=== PATIENT | male | born 1940 | race Caucasian/White ===

== ENCOUNTER 2016-11-15 06:03 | Day surgery (SDC) | payer MEDICARE ==
[~2016-11-15] VITALS: Ht 172.7 cm; Wt 100.7 kg
[~2016-11-15 06:03] MED LIST: ALTACE5 M1 PO; ASPIRIN325 MG PO; ATENOLOL50 MG PO; AVODART0.5 MG PO; FLOMAX0.4 M1 OR; HYDROCHLOROT12.5 M1 OR; LIPITOR40 MG PO; NAMZARIC 28-101 CAP PO; PRILOSEC20 MG/CAP PO; TOPIRAMATE25 MG PO; VASOTEC20 MG OR; ZOCOR10 MG OR
[2016-11-15 11:35] VITALS: BP 102/58
== END 2016-11-15 09:20 | disposition home or self-care (01) ==
LOC: ENDO 06:03
PROVIDERS: ATTEND Surgery
PROC: 0DJD8ZZ Inspection of Lower Intestinal Tract, Via Natural or Artificial Opening Endoscopic (ICD-10-PCS; principal; 2016-11-15)
DX: K59.00 Constipation, unspecified (principal); R19.7 Diarrhea, unspecified; R19.4 Change in bowel habit; K57.30 Diverticulosis of large intestine without perforation or abscess without bleeding; I10 Essential (primary) hypertension; Z95.2 Presence of prosthetic heart valve

== ENCOUNTER → 2018-10-29 | Outpatient (REF) | payer MEDICARE ==
[2018-10-29 17:49] LABS: URINE BILIRUBIN - DIPSTICK NEGATIVE (NEGATIVE); URINE BLOOD DIPSTICK NEGATIVE (NEGATIVE); URINE COLOR YELLOW; URINE GLUCOSE - DIPSTICK NEGATIVE (NEGATIVE); URINE KETONE NEGATIVE (NEGATIVE); URINE LEUK ESTERASE NEGATIVE (Negative); URINE NITRITE - DIPSTICK NEGATIVE (Negative); URINE PROTEIN - DIPSTICK NEGATIVE (NEG-TRACE)
[2018-10-29 17:51] LABS: URINE CLARITY CLEAR
== END | disposition home or self-care (01) ==
LOC: LABSPEC 16:46
PROVIDERS: ATTEND Internal Medicine
DX: R35.0 Frequency of micturition (principal)

== ENCOUNTER 2020-02-01 11:05 | Emergency (ER) | payer MEDICARE ==
[~2020-02-01] VITALS: Ht 172.7 cm; Wt 80.0 kg
[2020-02-01 11:39] LABS: HEMATOCRIT 41.8 % (39.0-50.0); HEMOGLOBIN 14.4 g/dl (14.0-18.0); IMMATURE GRANULOCYTES 0.7 % (0.0-5.0); MEAN CELL VOLUME 91.5 fL CALC (80.0-100.0); MEAN CORPUSCULAR HGB 31.5 pG CALC (26.0-32.0); MEAN CORPUSCULAR HGB CONC 34.4 g/dL CAL (32.0-36.0); NEUT# 3.73 thou/uL (1.82-7.42); RED BLOOD COUNT 4.57 mill/uL (4.70-6.10); RED CELL DISTRI WIDTH 13.2 % (11.5-15.5)
[2020-02-01 11:58] LABS: ACT PARTIAL THROMBO TIME 25.7 SECONDS (20.0-32.5); PROTHROMBIN TIME 10.6 SECONDS (9.0-12.5)
[2020-02-01 12:04] LABS: ALBUMIN 4.2 g/dL (3.2-5.0); ALKALINE PHOSPHATASE 61 u/l (38-126); ANION GAP 9 (6-22 (CALC)); BUN 17 mg/dL (8-23); BUN/CREATININE RATIO 23 (12-20 (CALC)); CARBON DIOXIDE 25 mmol/l (22-30); CHLORIDE 107 mmol/l (95-108); CREATININE 0.7 mg/dL (0.7-1.3); GFR > 60 ML/MIN (>=60 (CALC)); GFR FOR AFR.AMER. > 60 ML/MIN (>=60 (CALC)); POTASSIUM 4.6 mmol/l (3.5-5.1); SGOT/AST 25 u/l (19-48); SODIUM 137 mmol/l (137-146); TOTAL PROTEIN 6.9 g/dL (6.3-8.2)
[2020-02-01 12:06] LABS: BILIRUBIN, TOTAL 0.8 mg/dL (0.0-1.4)
[2020-02-01 12:16] LABS: MYOGLOBIN 41 ng/mL (0 - 121)
[2020-02-01 13:51] LABS: URINE BILIRUBIN - DIPSTICK NEGATIVE (NEGATIVE); URINE BLOOD DIPSTICK NEGATIVE (NEGATIVE); URINE COLOR YELLOW; URINE GLUCOSE - DIPSTICK NEGATIVE (NEGATIVE); URINE KETONE TRACE mg/dL (NEGATIVE); URINE LEUK ESTERASE NEGATIVE (NEGATIVE); URINE NITRITE - DIPSTICK NEGATIVE (Negative); URINE PROTEIN - DIPSTICK NEGATIVE (NEG-TRACE); URINE UROBILINOGEN - DIPSTICK 0.2 E.U./dL (0.2)
[2020-02-01] MEDS ORDERED: ALTACE10 MG PO (14:14)
[2020-02-01] MEDS ORDERED: DOXYCYCLINE HYC20 MG PO (14:15)
[2020-02-01] MEDS ORDERED: DUTASTERIDE0.5 MG PO (14:15)
[2020-02-01] MEDS ORDERED: ATENOLOL50 MG PO (14:16)
[2020-02-01] MEDS ORDERED: AMLODIPINE BESYL5 MG PO (14:17)
[2020-02-01] MEDS ORDERED: NAMZARIC 28-101 CAP PO (14:18)
[2020-02-01] MEDS ORDERED: RANITIDINE150 M1 PO (14:18)
[2020-02-01 14:30] VITALS: BP 166/77
== END 2020-02-01 14:30 | disposition home or self-care (01) ==
LOC: ED 11:05
PROVIDERS: Emergency Medicine
DX: R51 Headache (principal); I10 Essential (primary) hypertension

== ENCOUNTER 2020-02-14 14:33 | Emergency (ER) | payer MEDICARE ==
[~2020-02-14] VITALS: Ht 172.7 cm; Wt 100.0 kg
[~2020-02-14 14:33] MED LIST changes: +ALTACE10 MG PO; +AMLODIPINE BESYL5 MG PO; +DOXYCYCLINE HYC20 MG PO; +DUTASTERIDE0.5 MG PO; +RANITIDINE150 M1 PO
[2020-02-14] MEDS ORDERED: TRAMADOL HYDROC50 MG PO (16:13)
[2020-02-14 16:30] VITALS: BP 164/77
== END 2020-02-14 16:30 | disposition home or self-care (01) ==
LOC: ED 14:33
DX: S39.012A Strain of muscle, fascia and tendon of lower back, initial encounter (principal); I10 Essential (primary) hypertension; G30.9 Alzheimer's disease, unspecified; F02.80 Dementia in other diseases classified elsewhere, unspecified severity, without behavioral disturbance, psychotic disturbance, mood disturbance, and anxiety; X50.0XXA Overexertion from strenuous movement or load, initial encounter; Y93.89 Activity, other specified